=== PATIENT | female | born 1985 | race Two or more races ===

== ENCOUNTER 2017-12-31 19:44 | Emergency (ER) | payer SELFPAY ==
[~2017-12-31] VITALS: Ht 160 cm; Wt 51.3 kg
--- NOTE | 2017-12-31 20:30 | NUR ---
pt comes in w/ c/o generalized body pain. pt is aox4, able to speak in clear and complete sentences and make needs known. pt in no acute distress. breathes are clear and equal. awaiting orders.
[2017-12-31 21:16] LABS: CREATININE 0.6 mg/dL (0.6-1.3); POTASSIUM 3.4 mmol/L (3.5-5.1)
[2017-12-31 21:22] LABS: BILIRUBIN,DIRECT 0.1 mg/dL (0.0-0.2); BILIRUBIN,TOTAL 0.5 mg/dL (0.2-1.0); TOTAL PROTEIN, SERUM 7.1 g/dL (6.4-8.2)
[2017-12-31 21:24] LABS: *BILIRUBIN,URIN NEGATIVE (NEGATIVE); *BLOOD, URINE NEGATIVE (NEGATIVE); *CLARITY,URINE CLEAR (CLEAR); *COLOR,URINE YELLOW (YELLOW); *KETONES,URINE NEGATIVE (NEGATIVE); *PROTEIN,URINE NEGATIVE (NEGATIVE); *UROBILINOGEN,URINE 0.2 E.U./dl (NORMAL); LEUKOCYTE ESTERASE ,URINE NEGATIVE (NEGATIVE); NITRITE, URINE NEGATIVE (NEGATIVE); UGLUCOSE NEGATIVE (NEGATIVE)
[2017-12-31] MEDS ORDERED: IBUPROFEN 800 MG TABLET PO ONE (21:30)
[2017-12-31] MEDS ORDERED: IBUPROFEN 800 MG TABLET ONE (21:38)
[2017-12-31 21:41] LABS: BACTERIA,URINE NONE SEEN /HPF (NONE SEEN); RBC,URINE 0-3 /HPF (0-3); SQUAMOUS EPITHELIAL CELL,UR FEW /HPF (NONE SEEN); WBC,URINE 0-3 /HPF (0-3)
[2017-12-31] MEDS ORDERED: HYDROCODONE/APAP 5-325MG TABLET PO ONE (21:45)
[2017-12-31] MEDS ORDERED: HYDROCODONE/APAP 5-325MG TABLET ONE (21:50)
[2017-12-31 21:51] LABS: BASOPHILS % (AUTO) 0.3 % (0.0-2.0); EOSINOPHILS % (AUTO) 0.3 % (0.0-7.0); HEMATOCRIT 35.4 % (31.2-41.9); HEMOGLOBIN 11.8 g/dL (10.9-14.3); LYMPHOCYTES # (AUTO) 0.8 K/uL (20.0-40.0); MEAN CORPUSCULAR HEMOGLOBIN 27.1 uug (24.7-32.8); MEAN CORPUSCULAR HGB CONC 33 g/dL (32.3-35.6); MEAN CORPUSCULAR VOLUME 81.3 fL (75.5-95.3); MONOCYTES # (AUTO) 0.2 K/uL (2.0-10.0); MONOCYTES % (AUTO) 6.8 % (0.0-11.0); NEUTROPHILS # (AUTO) 2.1 K/uL (1.8-8.9); NEUTROPHILS % (AUTO) 67.6 % (38.5-71.5); RED BLOOD CELL COUNT(AUTO) 4.35 MIL/uL (3.63-4.92); WHITE BLOOD COUNT (AUTO) 3.2 K/uL (3.8-11.8)
--- NOTE | 2017-12-31 21:52 | NUR ---
per pt states someone will come and pick her and her car up. ER MD made aware, requested for change pain medication.
[2017-12-31] MEDS ORDERED: predniSONE 50 MG TABLET PO ONE (22:15)
[2017-12-31 22:19] LABS: PLATELET COUNT (AUTO) 157 K/uL (179-408)
[2017-12-31 22:20] LABS: NEUTROPHILS % (MANUAL) 66 % (42-75)
[2017-12-31 22:21] LABS: BAND % (MANUAL) 4 % (0-10); LYMPHOCYTES % (MANUAL) 26 % (20-40); MONOCYTES % (MANUAL) 4 % (2-10)
--- NOTE | 2017-12-31 22:45 | NUR ---
Patient discharged to home in stable conditon. Written and verbal after care instructions given with prescription. Patient verbalizes understanding of instructions.
== END 2017-12-31 22:45 | disposition home or self-care (01) ==
LOC: ER 19:46
DX: I77.6 Arteritis, unspecified (principal); Z91.040 Latex allergy status
CPT/HCPCS: 36415; 80048; 80076; 81001; 84484; 84703; 85025; 85651; 99284; A4663; 70030-TC

== ENCOUNTER 2018-03-05 04:54 | Emergency (ER) | payer SELFPAY ==
[~2018-03-05] VITALS: Ht 160 cm; Wt 51.3 kg
[2018-03-05] MEDS ORDERED: ACETAMINOPHEN 650 MG/20.3 ML LIQUID UDC PO ONE (05:39)
[2018-03-05] MEDS ORDERED: DEXAMETHASONE SOD PHOSPHATE 4 MG INJ IV ONE (05:45)
[2018-03-05] MEDS ORDERED: IV NS 1000 ML 1,000 ML IV ONE (05:45)
[2018-03-05] MEDS ORDERED: ACETAMINOPHEN 650 MG/20.3 ML LIQUID UDC ONE (05:51)
[2018-03-05] MEDS ORDERED: DEXAMETHASONE SOD PHOSPHATE 10 MG INJ ONE (05:53)
[2018-03-05 06:06] LABS: BASOPHILS % (AUTO) 0.4 % (0.0-2.0); EOSINOPHILS % (AUTO) 0.1 % (0.0-7.0); HEMATOCRIT 35.5 % (31.2-41.9); HEMOGLOBIN 11.9 g/dL (10.9-14.3); LYMPHOCYTES # (AUTO) 0.5 K/uL (20.0-40.0); LYMPHOCYTES % (AUTO) 17.3 % (20.5-51.5); MEAN CORPUSCULAR HEMOGLOBIN 27.2 uug (24.7-32.8); MEAN CORPUSCULAR HGB CONC 33 g/dL (32.3-35.6); MEAN CORPUSCULAR VOLUME 81.5 fL (75.5-95.3); MONOCYTES # (AUTO) 0.1 K/uL (2.0-10.0); MONOCYTES % (AUTO) 4.5 % (0.0-11.0); NEUTROPHILS # (AUTO) 2.4 K/uL (1.8-8.9); NEUTROPHILS % (AUTO) 77.7 % (38.5-71.5); PLATELET COUNT (AUTO) 108 K/uL (179-408); RED BLOOD CELL COUNT(AUTO) 4.36 MIL/uL (3.63-4.92); WHITE BLOOD COUNT (AUTO) 3.1 K/uL (3.8-11.8)
[2018-03-05 06:15] LABS: CREATININE 0.8 mg/dL (0.6-1.3); POTASSIUM 3.3 mmol/L (3.5-5.1)
[2018-03-05 06:17] LABS: *URINE HCG, QUAL NEGATIVE (NEGATIVE)
[2018-03-05 06:18] LABS: *BILIRUBIN,URIN NEGATIVE (NEGATIVE); *BLOOD, URINE NEGATIVE (NEGATIVE); *CLARITY,URINE CLEAR (CLEAR); *COLOR,URINE YELLOW (YELLOW); *KETONES,URINE NEGATIVE (NEGATIVE); *PROTEIN,URINE TRACE (NEGATIVE); LEUKOCYTE ESTERASE ,URINE NEGATIVE (NEGATIVE); NITRITE, URINE NEGATIVE (NEGATIVE); UGLUCOSE NEGATIVE (NEGATIVE)
[2018-03-05 06:21] LABS: BILIRUBIN,TOTAL 0.8 mg/dL (0.2-1.0); TOTAL PROTEIN, SERUM 7.9 g/dL (6.4-8.2)
[2018-03-05 06:29] LABS: RBC,URINE 0-3 /HPF (0-3)
[2018-03-05 06:30] LABS: BACTERIA,URINE FEW /HPF (NONE SEEN); MUCUS,URINE FEW /LPF (0-FEW); SQUAMOUS EPITHELIAL CELL,UR MODERATE /HPF (NONE SEEN)
[2018-03-05] MEDS ORDERED: ONDANSETRON IV *ER 4 MG/2 ML VIAL IV ONE (07:00)
[2018-03-05] MEDS ORDERED: MORPHINE SULFATE 4 MG/1 ML DISP.SYRIN IV ONE (07:00)
[2018-03-05] MEDS ORDERED: MORPHINE SULFATE 4 MG/1 ML DISP.SYRIN ONE (07:03)
--- NOTE | 2018-03-05 07:05 | NUR ---
HANDS OFF REPORT RECEVED FROM DWAIN PARADA.
[2018-03-05] MEDS ORDERED: ONDANSETRON 4 MG/2 ML VIAL ONE (07:07)
--- NOTE | 2018-03-05 07:27 | NUR ---
Patient discharged to home in stable conditon. Written and verbal after care instructions given. Patient verbalizes understanding of instructions. Pt left ER w/ steady gait.
[2018-03-05 07:28] VITALS: BP 121/68
== END 2018-03-05 07:29 | disposition home or self-care (01) ==
LOC: ER 04:56
DX: M32.9 Systemic lupus erythematosus, unspecified (principal); E86.9 Volume depletion, unspecified; Z91.040 Latex allergy status
CPT/HCPCS: 36415; 71045; 84703; 85025; A4663; J1100; J2270; J2405; J7030

== ENCOUNTER 2018-05-30 23:07 | Inpatient (IN) | payer SELFPAY ==
[~2018-05-30] VITALS: Ht 160 cm; Wt 48.6 kg
--- NOTE | 2018-05-30 23:29 | NUR ---
PT A/OX4, RESPONSIVE TO VERBAL AND TACTILE STIMULI. PT SELF-AMBULATED WITHOUT DIFFICULTY. PT C/O BILATERAL LE PAIN RELATED TO HX OF LUPUS. PAIN STARTED 2 DAYS AGO, NO PROVOKING FACTOR, ACHING PAIN, DOES NO RADIATE, 03/14. PT DENIES C/P, SOB, N/V. BED IN LOW AND LOCKED POSITION WITH BILATERAL UPPER SIDERAILS UP.
--- NOTE | 2018-05-30 23:43 | NUR ---
PT A/OX4, RESPONSIVE TO VERBAL AND TACTILE STIMULI. PT SELF-AMBULATED WITHOUT DIFFICULTY. PT C/O BILATERAL LE PAIN X 2 DAYS. PATIENT HAS HX OF LUPUS AND BELIEVES THE PAIN IS RELATED TO THIS CONDITION. PAIN STARTED 2 DAYS AGO, NO PROVOKING FACTOR, ACHING PAIN, DOES NOT RADIATE, 03/14. ON EVALUATION: PT NOTED WITH PATCH OF REDNESS ON L ORTEGA AND R ANKLE. WARM TO THE TOUCH, BUT NO EDEMA NOTED. PATIENT IS NOTED WITH BLE BEING WARM TO THE TOUCH AND ENDORSES PAIN WITH AMBULATION. PT DENIES C/P, SOB, N/V, NO FEVER COMPLAINTS. BED IN LOW AND LOCKED POSITION WITH BILATERAL UPPER SIDERAILS UP.
--- NOTE | 2018-05-30 23:49 | NUR ---
PHANI SPIVEY at bedside for patient evaluation.
[2018-05-30] MEDS ORDERED: DEXAMETHASONE SOD PHOSPHATE 4 MG INJ IM ONE (23:54)
[2018-05-31] MEDS ORDERED: ACETAMINOPHEN 325 MG TABLET PO ONE
[2018-05-31] MEDS ORDERED: ACETAMINOPHEN ES 500 MG TABLET ONE (00:02)
[2018-05-31] MEDS ORDERED: DEXAMETHASONE SOD PHOSPHATE 4 MG INJ ONE ×2 (00:02→00:08)
[2018-05-31 00:32] LABS: ALANINE AMINOTRANSFERASE 13 U/L (14-59); ALKALINE PHOSPHATASE 62 U/L (50-136); ASPARTATE AMINOTRANSFERASE 14 U/L (15-37); BILIRUBIN,TOTAL 0.5 mg/dL (0.2-1.0); CARBON DIOXIDE 28 mmol/L (21-32); CHLORIDE 101 mmol/L (98-107); CREATINE KINASE, TOTAL 61 U/L (26-192); CREATININE 0.6 mg/dL (0.6-1.3); GLUCOSE 96 mg/dL (74-106); POTASSIUM 3.2 mmol/L (3.5-5.1); UREA NITROGEN, BLOOD 5 mg/dL (7-18)
--- NOTE | 2018-05-31 00:45 | NUR ---
FOUNTAIN OPERATOR AT BEDSIDE.
--- NOTE | 2018-05-31 00:59 | NUR ---
Patient ambulated to restroom with stable gait. no acute distress noted at this time. VSS
[2018-05-31] MEDS ORDERED: POTASSIUM CHLORIDE 20 MEQ TAB.PRT.SR PO ONE (01:18)
[2018-05-31 01:23] LABS: BASOPHILS % (AUTO) 0.3 % (0.0-2.0); HEMATOCRIT 31.6 % (31.2-41.9); HEMOGLOBIN 10.6 g/dL (10.9-14.3); LYMPHOCYTES # (AUTO) 0.5 K/uL (20.0-40.0); LYMPHOCYTES % (AUTO) 14.9 % (20.5-51.5); MEAN CORPUSCULAR HEMOGLOBIN 27.5 uug (24.7-32.8); MEAN CORPUSCULAR HGB CONC 34 g/dL (32.3-35.6); MEAN CORPUSCULAR VOLUME 81.9 fL (75.5-95.3); MONOCYTES # (AUTO) 0.2 K/uL (2.0-10.0); MONOCYTES % (AUTO) 5.1 % (0.0-11.0); NEUTROPHILS # (AUTO) 2.8 K/uL (1.8-8.9); NEUTROPHILS % (AUTO) 78.7 % (38.5-71.5); PLATELET COUNT (AUTO) 166 K/uL (179-408); RED BLOOD CELL COUNT(AUTO) 3.86 MIL/uL (3.63-4.92); WHITE BLOOD COUNT (AUTO) 3.5 K/uL (3.8-11.8)
[2018-05-31] MEDS ORDERED: POTASSIUM CHLORIDE 20 MEQ TAB.PRT.SR ONE (01:24)
[2018-05-31] MEDS ORDERED: HYDROCODONE/APAP 5-325MG TABLET PO ONE (01:28)
[2018-05-31] MEDS ORDERED: HYDROCODONE/APAP 5-325MG TABLET ONE (01:31)
--- NOTE | 2018-05-31 01:37 | NUR ---
ER MD at bedside for patient update. Plan of care reviewed with patient at this time. All questions/concerns answered by MD.
[2018-05-31] MEDS ORDERED: CEFTRIAXONE 1 G in IV DEXTROSE 5% 50 ML IV ONE (01:44)
[2018-05-31] MEDS ORDERED: ALBUTEROL SULFATE 2.5 MG/ 0.5 ML NEBU NEB ONE (01:44)
[2018-05-31] MEDS ORDERED: IPRATROPIUM BROMIDE 0.5 MG/2.5 ML NEBU NEB ONE (01:45)
--- NOTE | 2018-05-31 01:47 | NUR ---
CALLED EPIC PANEL RE PT ADMISSION TO HOSPITAL. NO ANSWER, AWAITING CALL-BACK.
[2018-05-31] MEDS ORDERED: CEFTRIAXONE 1 G VIAL ONE (01:49)
--- NOTE | 2018-05-31 01:51 | NUR ---
PHANI MD on phone with Epic Panel MD at this time.
--- NOTE | 2018-05-31 01:52 | NUR ---
Pt. admitted to Telemetry , under care of Dr. Brown. Patient going to telemetry bed, room 221 [place] completed
[2018-05-31] MEDS ORDERED: IPRATROPIUM BROMIDE 0.5 MG/2.5 ML NEBU ONE (01:54)
[2018-05-31] MEDS ORDERED: ALBUTEROL SULFATE 2.5 MG/3 ML NEBU ONE (01:54)
[2018-05-31] MEDS ORDERED: IV NS 1000 ML 1,000 ML IV ONE ×2 (02:00)
--- NOTE | 2018-05-31 02:02 | NUR ---
Phlebotomy at bedside for blood culture collection. patient ambulated to restroom with stable gait
--- NOTE | 2018-05-31 02:12 | NUR ---
RT AT BEDSIDE ADMINISTERING BREATHING TREATMENT PER MD ORDER.
--- NOTE | 2018-05-31 02:16 | NUR ---
GAVE ADMITTING REPORT TO [facility] RN, BRODY.
[2018-05-31 02:37] LABS: *URINE HCG, QUAL NEGATIVE (NEGATIVE)
[2018-05-31 02:38] LABS: *BILIRUBIN,URIN NEGATIVE (NEGATIVE); *BLOOD, URINE Trace-intact (NEGATIVE); *CLARITY,URINE CLEAR (CLEAR); *KETONES,URINE NEGATIVE (NEGATIVE); *PROTEIN,URINE NEGATIVE (NEGATIVE); *UROBILINOGEN,URINE 0.2 E.U./dl (NORMAL); LEUKOCYTE ESTERASE ,URINE NEGATIVE (NEGATIVE); NITRITE, URINE NEGATIVE (NEGATIVE); UGLUCOSE NEGATIVE (NEGATIVE)
--- NOTE | 2018-05-31 02:40 | NUR ---
Pt. admitted to TELE, under care of Dr. LR [place] completed.
[2018-05-31 02:53] LABS: *COLOR,URINE STRAW (YELLOW)
[2018-05-31 02:58] LABS: BACTERIA,URINE NONE SEEN /HPF (NONE SEEN); RBC,URINE 0-3 /HPF (0-3); SQUAMOUS EPITHELIAL CELL,UR MANY /HPF (NONE SEEN); WBC,URINE 0-3 /HPF (0-3)
[2018-05-31] MEDS ORDERED: HYDROCODONE/APAP 5-325MG TABLET PO PRN (03:00)
[2018-05-31] MEDS ORDERED: Z GUARD REMEDY PASTE 57 GM TUBE TOP PRN (03:00)
[2018-05-31] MEDS ORDERED: ACETAMINOPHEN 325 MG TABLET PO PRN (03:00)
[2018-05-31] MEDS ORDERED: ONDANSETRON 4 MG/2 ML VIAL IV PRN (03:00)
[2018-05-31] MEDS ORDERED: MAGNESIUM HYDROXIDE 30 ML LIQUID UDC PO PRN (03:00)
--- NOTE | 2018-05-31 03:00 | NUR ---
Received pt in unit at [address] Brown. Pt noted to be alert and oriented x 3, denies difficulty breathing. Pertinent assessments done. Pt afebrile. Unit orientation provided. Safe environment implemented. Call light within reach.
[2018-05-31 04:00] VITALS: BP 127/88
--- NOTE | 2018-05-31 04:00 | NUR ---
Pt complaining of left lower extremity pain, noted to be swelling with redness and warm to touch. Dr Brown paged and received orders for US of LLE to rule out DVT.
--- NOTE | 2018-05-31 06:42 | NUR ---
Pt made aware of all plan of care. No s/s of acute distress noted at this time. Pain management administered as ordered. Safe environment implemented. Call light within reach.
[2018-05-31] MEDS: predniSONE 10 MG TABLET PO SCH (08:01)
[2018-05-31] MEDS ORDERED: HYDROXYCHLOROQUINE SULFATE 200 MG TABLET PO SCH ×3 (09:30→18:00)
--- NOTE | 2018-05-31 11:00 | NUR ---
Full SBAR report received from ELZA Dai
[2018-05-31 11:43] VITALS: BP 116/76
[2018-05-31] MEDS ORDERED: MORPHINE SULFATE 2 MG/1 ML DISP.SYRIN IM PRN (12:00)
[2018-05-31] MEDS ORDERED: MORPHINE SULFATE 2 MG/1 ML DISP.SYRIN IV PRN (12:00)
[2018-05-31] MEDS: HYDROXYCHLOROQUINE SULFATE 200 MG TABLET PO SCH ×2 (12:39→20:32)
[2018-05-31] MEDS: MORPHINE SULFATE 4 MG/1 ML DISP.SYRIN IV PRN ×2 (12:39→20:16)
[2018-05-31 16:55] VITALS: BP 124/80
--- NOTE | 2018-05-31 17:25 | NUR ---
End of shift note: Patient is alert and oriented x4, in no acute distress. medicated for pain as needed and was effective. Assisted to the bathroom as needed. No acute change of condition noted. All needs attended and met. Will continue to monitor
--- NOTE | 2018-05-31 19:15 | NUR ---
RECEIVED PT AWAKE, ALERT, ORIENTEDX4. PT SHOWS NO SIGNS OF DISTRESS. IV INTACT. CALL LIGHT WITHIN REACH. SAFETY AND COMFORT PROVIDED. WILL CONTINUE TO MONITOR.
[2018-05-31 19:33] VITALS: BP 116/74
--- NOTE | 2018-05-31 21:40 | NUR ---
RECEIVED REPORT FROM INITIAL PRIMARY CARE NURSE AT THIS TIME. PT NOTED TO HAVE PAIN RELIEF FROM MORPHINE IV AT THIS TIME. NO S/S OF ACUTE DISTRESS. SAFE ENVIRONMENT IMPLEMENTED. CALL LIGHT WITHIN REACH.
--- NOTE | 2018-05-31 21:41 | NUR ---
HANDSOFF REPORT TO BRODY PARADA. PT SHOWS NO SIGNS OF DISTRESS. PT GIVEN PAIN MEDICATION FOR GENERALIZED PAIN. PT VITAL SIGNS STABLE AND WITHIN NORMAL LIMIT. CALL LIGHT WITHIN REACH. SAFETY AND COMFORT PROVIDED. WILL CONTINUE TO MONITOR.
[2018-06-01] MEDS: MORPHINE SULFATE 4 MG/1 ML DISP.SYRIN IV PRN ×2 (00:33→10:18)
[2018-06-01 03:43] VITALS: BP 106/66
[2018-06-01 07:16] LABS: BASOPHILS % (AUTO) 0.3 % (0.0-2.0); EOSINOPHILS % (AUTO) 0.8 % (0.0-7.0); HEMATOCRIT 31.2 % (31.2-41.9); HEMOGLOBIN 10.5 g/dL (10.9-14.3); LYMPHOCYTES # (AUTO) 0.8 K/uL (20.0-40.0); LYMPHOCYTES % (AUTO) 26.4 % (20.5-51.5); MEAN CORPUSCULAR HEMOGLOBIN 27.6 uug (24.7-32.8); MEAN CORPUSCULAR HGB CONC 34 g/dL (32.3-35.6); MEAN CORPUSCULAR VOLUME 82.1 fL (75.5-95.3); MONOCYTES # (AUTO) 0.4 K/uL (2.0-10.0); MONOCYTES % (AUTO) 11.7 % (0.0-11.0); NEUTROPHILS # (AUTO) 1.9 K/uL (1.8-8.9); NEUTROPHILS % (AUTO) 60.8 % (38.5-71.5); PLATELET COUNT (AUTO) 137 K/uL (179-408); WHITE BLOOD COUNT (AUTO) 3.1 K/uL (3.8-11.8)
[2018-06-01 07:28] LABS: ALANINE AMINOTRANSFERASE 14 U/L (14-59); ALKALINE PHOSPHATASE 56 U/L (50-136); ASPARTATE AMINOTRANSFERASE 16 U/L (15-37); BILIRUBIN,TOTAL 0.4 mg/dL (0.2-1.0); CARBON DIOXIDE 27 mmol/L (21-32); CHLORIDE 107 mmol/L (98-107); CHOLESTEROL 146 mg/dL (<200); CREATININE 0.5 mg/dL (0.6-1.3); GLUCOSE 87 mg/dL (74-106); HDL CHOLESTEROL 34 mg/dL (40-60); MAGNESIUM 2.1 mg/dL (1.8-2.4); POTASSIUM 3.6 mmol/L (3.5-5.1); TOTAL PROTEIN, SERUM 7.6 g/dL (6.4-8.2); TRIGLYCERIDES 89 MG/DL (30-150); UREA NITROGEN, BLOOD 7 mg/dL (7-18)
[2018-06-01] MEDS: HYDROXYCHLOROQUINE SULFATE 200 MG TABLET PO SCH (09:09)
[2018-06-01] MEDS: predniSONE 10 MG TABLET PO SCH (09:09)
[2018-06-01] MEDS ORDERED: HYDR-3326 PO (10:48)
[2018-06-01] MEDS ORDERED: HYDR200T4 PO (10:48)
[2018-06-01] MEDS ORDERED: PRED10TA PO (10:48)
[2018-06-01 11:12] VITALS: BP 100/59
--- NOTE | 2018-06-01 12:34 | NUR ---
discharge noted. patient agreeable with plan. discharge protocol followed, iv removed with no redness or irritation. all belongings accounted for and sent with patient, prescription given to patient. patient did not want wheelchair, ambulated with myself down to private car with [employer]
== END 2018-06-01 12:20 | disposition home or self-care (01) | DRG 546 ==
LOC: ER 23:09 → TELE 05-31 02:00 → MED 05-31 02:55
PROVIDERS: ADMIT Internal Medicine; ATTEND Internal Medicine
DX: M32.9 Systemic lupus erythematosus, unspecified (principal); D61.818 Other pancytopenia; E44.1 Mild protein-calorie malnutrition; Z68.1 Body mass index [BMI] 19.9 or less, adult; D64.9 Anemia, unspecified; E87.6 Hypokalemia; Z86.711 Personal history of pulmonary embolism; Z87.01 Personal history of pneumonia (recurrent); Z91.040 Latex allergy status
CPT/HCPCS: 36415; 70030-TC; 71045; 71250; 83735; 84100; 84703; 85025; 85651; 87040; 93005; A4663; A9150; J0696; J1100; J2270; J2405; J3590; J7030; J7060; J7512